=== PATIENT | male | born 1960 | race Caucasian/White ===

== ENCOUNTER 2021-02-25 08:41 | Emergency (ER) | payer BC, OTHER ==
[~2021-02-25] VITALS: Ht 177.8 cm; Wt 75.0 kg
[2021-02-25 08:52] VITALS: BP 169/92
[2021-02-25] MEDS ORDERED: ketorolac trometh inj. 60 MG/2 ML VIAL IM ONE (09:40)
[2021-02-25] MEDS ORDERED: METH4TAB81 PO (10:57)
[2021-02-25] MEDS ORDERED: CYCL5TAB PO (10:57)
== END 2021-02-25 12:15 | disposition home or self-care (01) ==
LOC: ER 08:43
DX: S13.4XXA Sprain of ligaments of cervical spine, initial encounter (principal); M54.5 Low back pain; V89.2XXA Person injured in unspecified motor-vehicle accident, traffic, initial encounter
CPT/HCPCS: 72040; 72100; 72131; 96372; 99284; J1885